=== PATIENT | female | born 1990 | race Caucasian/White ===

== ENCOUNTER → 2023-12-19 | Day surgery (SDC) | payer BC ==
[2023-12-14 09:06] LABS: BASOPHILS % 1.3 % (0.0-1.0); EOSINOPHILS # (AUTO) 0.1 (0.0-0.4); EOSINOPHILS % 2.5 % (0.0-6.0); HEMATOCRIT 37.5 % (34.2-44.1); HEMOGLOBIN 12.1 g/dL (12.0-16.0); LYMPHOCYTES # (AUTO) 1.5 (1.0-3.2); LYMPHOCYTES % 45.3 % (18.0-39.1); MEAN CORPUSCULAR HEMOGLOBIN 30.1 pg (28-32); MEAN CORPUSCULAR HGB CONC 32.3 g/dL (31-35); MEAN CORPUSCULAR VOLUME 93.3 fL (81-99); MONOCYTES # (AUTO) 0.3 (0.2-0.8); NEUTROPHILS # (AUTO) 1.3 (2.1-6.9); NEUTROPHILS % 40.9 % (38.7-80.0); PLATELET COUNT 210 x10e3/uL (140-360); RED BLOOD COUNT 4.02 x10e6/uL (3.6-5.1); RED CELL DISTRIBUTION WIDTH 12.4 % (11.7-14.4)
[~2023-12-19] MED LIST: EPINEPHRINE HCL 1:1000 1ML 1 MG/ML AMP ONE; FENTANYL CITRATE/PF 100MCG/2 ML INJ ONE; IRON PO; MIDAZOLAM HCL 2 MG/2 ML VIAL ONE; ROPIVACAINE 0.5% 5 MG/ML 30 ML SDV ONE
[2023-12-19] MEDS: LACTATED RINGER'S 1,000 ML ONE (07:28)
[2023-12-19] MEDS: CEFAZOLIN SODIUM 2 GM ONE (07:28)
[2023-12-19 09:42] VITALS: TEMP 97.3
[2023-12-19 10:35] VITALS: BP 130/78; PULSE 65; RESP 16; O2SAT 98
[2023-12-19] MEDS: ONDANSETRON HCL 4 MG ORAL DISINTEGRATING TAB ONE (10:40)
== END | disposition home or self-care (01) ==
LOC: OR 06:31
PROVIDERS: ATTEND Orthopaedic Surgery
DX: S43.022A Posterior subluxation of left humerus, initial encounter (principal); S43.432A Superior glenoid labrum lesion of left shoulder, initial encounter; Z01.812 Encounter for preprocedural laboratory examination
CPT/HCPCS: 29806; 36415; 81025; 85025; J0171; J2250; J2795; J3010; J7121; Q0162